=== PATIENT | female | born 1995 | race African-American/Black ===

== ENCOUNTER 2021-07-09 20:10 | Inpatient (IN) | payer OTHER, SELFPAY ==
[~2021-07-09] VITALS: Ht 167.6 cm; Wt 96.2 kg
[2021-07-09 21:02] VITALS: BP 122/69
[2021-07-09] MEDS ORDERED: cefTRIAXone 1,000 MG VIAL ONE (21:25)
[2021-07-09] MEDS ORDERED: cefTRIAXone 1,000 MG in LIDOCAINE MPF 1% 2.1 ML IM ONE (21:25)
[2021-07-09] MEDS ORDERED: LIDOCAINE 1% 500 MG/50 ML VIAL ONE (21:26)
[2021-07-09 23:03] LABS: BASOPHILS # (AUTO) 0.2 K/uL (0.00-0.22); BASOPHILS % (AUTO) 1.9 % (0.0-2.0); HEMATOCRIT 34.1 % (36-48); HEMOGLOBIN 11.3 g/dL (12.0-16.0); LYMPHOCYTES # (AUTO) 0.6 K/uL (2.5-16.5); LYMPHOCYTES % (AUTO) 5.4 % (20.5-51.1); MEAN CORPUSCULAR HEMOGLOBIN 27 pg (27-31); MEAN CORPUSCULAR HGB CONC 33 g/dL (33-37); MEAN CORPUSCULAR VOLUME 81.1 fL (80-94); MONOCYTES # (AUTO) 0.4 K/uL (0.8-1.0); MONOCYTES % (AUTO) 3.9 % (1.7-9.3); NEUTROPHILS # (AUTO) 9.2 K/uL (1.8-7.7); NEUTROPHILS % (AUTO) 88.8 % (42.2-75.2); PLATELET COUNT (AUTO) 225 K/uL (140-450); RED BLOOD CELL COUNT(AUTO) 4.21 MIL/uL (4.20-5.40); RED CELL DISTRIBUTION WIDTH 15.5 % (11.6-13.7); WHITE BLOOD COUNT (AUTO) 10.4 K/uL (4.8-10.8)
[2021-07-09] MEDS ORDERED: NIFEdipine 10 MG CAPLF PO ONE (23:20)
[2021-07-09] MEDS ORDERED: LACTATED RINGERS 1,000 ML IV SCH (23:20)
[2021-07-09] MEDS ORDERED: NIFEdipine 10 MG CAPLF ONE (23:26)
[2021-07-09] MEDS ORDERED: diphenhydrAMINE 50 MG CAP PO PRN (23:50)
[2021-07-10] MEDS ORDERED: PRETAB PO (00:36)
[2021-07-10] MEDS ORDERED: ONDANSETRON 4 MG/2 ML VIAL IVP PRN (01:50)
[2021-07-10] MEDS ORDERED: MORPHINE SULFATE 10 MG/ML VIAL ONE ×6 (01:53→10:34)
[2021-07-10] MEDS ORDERED: ONDANSETRON 4 MG/2 ML VIAL ONE (01:53)
[2021-07-10] MEDS: NIFEdipine 10 MG CAPLF PO SCH ×2 (06:00→11:56)
[2021-07-10] MEDS: MORPHINE SULFATE 5 MG/ML VIAL IVP PRN ×4 (06:34→10:38)
[2021-07-10] MEDS: LACTATED RINGERS 1,000 ML IV SCH ×2 (07:50→14:20)
--- NOTE | 2021-07-10 08:02 | NUR ---
PATIENT HAS BEEN SCREENED AND CATEGORIZED LOW NUTRITION RISK. PATIENT WILL BE SEEN WITHIN 7 DAYS OF ADMISSION. 07/16/[address]
[2021-07-10 09:57] LABS: HEMATOCRIT 34.2 % (36-48); LYMPHOCYTES # (AUTO) 0.3 K/uL (2.5-16.5); LYMPHOCYTES % (AUTO) 2.1 % (20.5-51.1); MEAN CORPUSCULAR HEMOGLOBIN 26 pg (27-31); MEAN CORPUSCULAR HGB CONC 32 g/dL (33-37); MEAN CORPUSCULAR VOLUME 81.2 fL (80-94); MONOCYTES # (AUTO) 0.8 K/uL (0.8-1.0); MONOCYTES % (AUTO) 4.6 % (1.7-9.3); NEUTROPHILS # (AUTO) 15.7 K/uL (1.8-7.7); NEUTROPHILS % (AUTO) 93.3 % (42.2-75.2); PLATELET COUNT (AUTO) 209 K/uL (140-450); RED BLOOD CELL COUNT(AUTO) 4.22 MIL/uL (4.20-5.40); RED CELL DISTRIBUTION WIDTH 15.5 % (11.6-13.7); WHITE BLOOD COUNT (AUTO) 16.8 K/uL (4.8-10.8)
[2021-07-10 10:17] LABS: ALBUMIN 3.2 g/dL (3.4-5.0); ANION GAP 18.5 (8-16); CARBON DIOXIDE 20.5 mmol/L (21-32); CREATININE 0.6 mg/dL (0.6-1.3); TOTAL BILIRUBIN 0.3 mg/dL (0.0-1.0)
[2021-07-10] MEDS ORDERED: MORPHINE SULFATE 10 MG/ML VIAL IVP PRN (11:00)
[2021-07-10 12:48] VITALS: BP 127/75
[2021-07-10] MEDS ORDERED: ROPIVACAINE 0.2%/NS PREMIX 200 ML EPI ONE (13:52)
[2021-07-10] MEDS ORDERED: ROPIVACAINE 0.2%/NS PREMIX 200 ML EPI SCH (14:40)
[2021-07-10] MEDS ORDERED: OXYTOCIN 20 UNITS/LR PREMIX 1,000 ML IV ONE (14:55)
[2021-07-10] MEDS ORDERED: TEMAZEPAM 15 MG CAP PO PRN (16:20)
[2021-07-10] MEDS ORDERED: BENZOCAINE/MENTHOL 20%-0.5% 60 GM CAN TP PRN (16:20)
[2021-07-10] MEDS ORDERED: METHYLERGONOVINE 0.2 MG/ML AMP IM PRN (16:20)
[2021-07-10] MEDS ORDERED: oxyCODONE/APAP 5/325 MG 1 TAB TAB PO PRN (16:20)
[2021-07-10] MEDS ORDERED: METHYLERGONOVINE 0.2 MG TAB PO PRN (16:20)
[2021-07-10] MEDS ORDERED: AMPICILLIN 2,000 MG VIAL ONE (16:23)
[2021-07-10] MEDS ORDERED: IBUPROFEN 600 MG TAB PO PRN (16:25)
[2021-07-10] MEDS ORDERED: CAMERA MC ONE (16:34)
[2021-07-10] MEDS ORDERED: DOCUSATE SOD/SENNA 50/8.6 MG 1 TAB PO SCH (21:00)
[2021-07-10] MEDS ORDERED: bisacodyL 5 MG TABEC PO SCH (21:00)
[2021-07-10] MEDS ORDERED: SENNA 8.6 MG TAB PO SCH (21:00)
[2021-07-11] MEDS: HYDROcodone/APAP 5/325 MG 1 TAB TAB PO PRN ×2 (05:43→12:25)
--- NOTE | 2021-07-11 12:00 | NUR ---
DISCHARGE PLANNING PATIENT IS A 25-YEAR-OLD FEMALE ADMITTED DUE TO LOWER ABDOMINAL PAIN. PATIENT HAD INTRAUTERINE DEMISE. SW MEET WITH PATIENT AT BEDSIDE TO DISCUSS AND GATHER COLLATERAL INFORMATION. SW PROCESS WITH PATIENT THE EVEN OF LOSS AND GRIEF, PATIENT WAS AWAKE AND ALERT ABLE TO DISCUSS HER STATUS. PATIENT REPORTED FEELINGS OF SADNESS AND SHARE WITH THIS PERSONAL CAREGIVER THAT SHE HAS HAD 2 PREVIOUS LOSSES IN THE PAST; THEREFORE SHE IS SOME WHAT DEALING WITH HER LOSS BETTER THIS TIME. SW VALIDATED HER FEELINGS AND EDUCATED PATIENT ON THE STAGES OF GRIEF AND LOSS; ALSO PROVIDED HER WITH INFORM AND RESOURCES AVAILABLE TO HER IN HER AREA OF SUPPORT GROUPS AND MENTAL HEALTH SERVICES THAT SHE CAN UTILIZED ON AN INDIVIDUAL SETTING. PATIENT STATED THAT SHE WILL TAKE INFORMATION AND WILL USE IT AND ONE POINT TO HELP HER COPE WITH HER GRIEF/LOSS. PATIENT OPEN UP AND SHARE THAT SHE WILL TAKE A TRIP WITH HER AND GET AWAY FOR A WHILE AND SHE IS BACK SHE WILL FOCUS ON HER PHYSICAL AND MENTAL HEALTH. PATIENT STATED HAVING A GOOD SUPPORT SYSTEM HERE IN THE [facility] WITH FAMILY AND FRIENDS AND WILL BE GOING TO VISIT HER PARENTS IN [place] SOON, PATIENT REPORTED THAT SHE DOESN'T HAVE A.D AND TOOK INFORMATION PACKET PROVIDED BY SW. PATIENT ALSO REPORTED BEEN INDEPENDENT WITH NO NEED FOR DME AND NO ISSUES GETTING OR TAKING HER MEDICATIONS PRESCRIBED BY MD. PATIENT ALSO STATED THAT SHE WILL RETURN HOME WITH THE ASSISTANCE AND TRANSPORTATION FROM HER WHO WILL PICK HER UP AFTER HER DC FROM [facility]. PATIENT WAS THANKFUL TO THESE PERSONAL CAREGIVER FOR THE TIME SPEND AND RESOURCES PROVIDED. SW ENDED THE VISIT WITH PATIENT AND WILL FOLLOW UP NEEDED.
[2021-07-11 16:31] LABS: HEMATOCRIT 28.3 % (36-48)
[2021-07-11] MEDS ORDERED: DOCUSATE SOD/SENNA 50/8.6 MG 1 TAB PO SCH (21:00)
--- NOTE | 2021-07-17 11:00 | NUR ---
MANUEL NOTE : LATE ENTRY CALL TIME AT ABOUT 11:00AM L&D RN HUMBERTO CONTACTED SW STATING THAT SHE HAS ATTEMPTED TO CALL PATIENT AT AND HER YESENIA REED AT TO DISCUSS MORTUARY INFORMATION AND ARRANGEMENTS NEEDED TO MADE FOR DEMISE STILL AT [facility]. SW WILL CONTACT PATIENT AND TO DISCUSS SITUATION. CALL TIME AT ABOUT 11:10AM SW ATTEMPTED TO CONTACT BOTH PATIENT AND AT BOTH NUMBERS AND IN ATTEMPT TO MAKE CONTACT. NEITHER ANSWER THE CALL AND SW LEFT HER DIRECT CONTACT NUMBER AND A MGS WITH REQUEST FOR A CALL BACK PAT. CALL TIME 2:00PM SW MADE A SECOND ATTEMPT CALL TO BOTH PATIENT AND AT BOTH NUMBERS AND IN ATTEMPT TO MAKE CONTACT. NEITHER ANSWER THE CALL AND SW LEFT HER DIRECT CONTACT NUMBER AND A MGS WITH REQUEST FOR A CALL BACK PAT. Addendum: 07/17/21 at 1527 by Catarina Jiang CALL WAS ABOUT 2:30PM SW CALL [place] [employer] AT TO MAKE A WELFARE CHECK SINCE NEITHER PATIENT OR HAS RESPONDED TO THE CALLS. Addendum: 07/17/21 at 1628 by Catarina Jiang CALL WAS ABOUT 4:00PM SW RECEIVED A CALL BACK FROM [place] [employer] GARRICK STATING THAT HE WAS AT PATIENT'S APARTMENT FOR THE WELFARE CHECK; REPORTED THAT PATIENT IS FINE AT THE APARTMENT WITH HER CELL PHONE OFF THAT IS WHY SHE HAS NOT ANSWER THE PHONE CALLS. ACCORDING TO [place] OFFICER PATIENT STATED THAT HER YESENIA REED . WILL BE CALLING [facility] AND MAKING ARRANGEMENTS FOR THE BABY. SW THANKED [employer] FOR THEIR ASSISTANCE AND ENDED THE CALL. MANUEL WILL FOLLOW UP NEEDED.
== END 2021-07-11 20:30 | disposition home or self-care (01) | DRG 768 ==
LOC: MLD 20:10 → OBSVTOIN 23:06 → MFCC 07-10 20:55
PROVIDERS: ADMIT Obstetrics & Gynecology; ATTEND Obstetrics & Gynecology
PROC: 10E0XZZ Delivery of Products of Conception, External Approach (ICD-10-PCS; principal; 2021-07-10)
PROC: 0UCC7ZZ Extirpation of Matter from Cervix, Via Natural or Artificial Opening (ICD-10-PCS; 2021-07-10)
PROC: 0UQGXZZ Repair Vagina, External Approach (ICD-10-PCS; 2021-07-10)
PROC: 3E0R3BZ Introduction of Anesthetic Agent into Spinal Canal, Percutaneous Approach (ICD-10-PCS; 2021-07-10)
PROC: 00HU33Z Insertion of Infusion Device into Spinal Canal, Percutaneous Approach (ICD-10-PCS; 2021-07-10)
DX: O36.4XX0 Maternal care for intrauterine death, not applicable or unspecified (principal); Z37.1 Single stillbirth; O60.12X0 Preterm labor second trimester with preterm delivery second trimester, not applicable or unspecified; O71.4 Obstetric high vaginal laceration alone; O32.1XX0 Maternal care for breech presentation, not applicable or unspecified; O99.214 Obesity complicating childbirth; E66.01 Morbid (severe) obesity due to excess calories; Z3A.22 22 weeks gestation of pregnancy; Z20.822 Contact with and (suspected) exposure to COVID-19
CPT/HCPCS: 36415; 51702; 59409; 76805; 76815; 80053; 85018; 85025; 85384; 86886; 86900; 86901; G0378; J0290; J0690; J0696; J2001; J2270; J2405; J2590; J2795; J7060; Q0092; Q0163